=== PATIENT | female | born 1930 | race Caucasian/White ===

== ENCOUNTER 2019-11-25 19:11 | Emergency (ER) | payer OTHER ==
[~2019-11-25] VITALS: Ht 154.9 cm; Wt 69.4 kg
[2019-11-25] MEDS ORDERED: MICARDIS40 MG (19:29)
[2019-11-25] MEDS ORDERED: TOPROL XL25 M1 (19:29)
== END 2019-11-25 23:05 | disposition home or self-care (01) ==
LOC: EDBD 19:11 → ER 19:11
DX: R53.81 Other malaise (principal); F41.8 Other specified anxiety disorders